=== PATIENT | male | born 1990 | race Caucasian/White ===

== ENCOUNTER 2017-06-03 14:03 | Emergency (ER) | payer OTHER ==
[2017-06-03 14:29] VITALS: RESP 18; TEMP 98.2
[2017-06-03] MEDS ORDERED: PENICILLIN V POTASSIUM 250 MG TAB PO STA (14:46)
[2017-06-03] MEDS ORDERED: KETOROLAC 30 MG/ML 1 ML VIAL IM STA (14:46)
[2017-06-03] MEDS ORDERED: BUPIVACAINE (PF) 0.5% 30 ML VIAL MISCELLANE STA (14:47)
--- NOTE | 2017-06-03 15:17 | ED ---
General Adult HPI - General Chief complaint: Dental/Oral Stated complaint: Dental Pain Time Seen by Provider: 06/03/17 14:34 Source: patient, RN notes reviewed Mode of arrival: ambulatory Limitations: no limitations - History of Present Illness Initial comments: 27-year-old male presents to the emergency department for a chief complaint of toothache. Patient has had tooth pain for about 3 days. Patient states he does not currently have a dentist. Patient denies any fevers or chills. Patient is able to open his mouth. Patient denies any pain or stiffness in the neck. Patient states it hurts to eat and is worse with any hot or cold. Patient states the affected tooth is also cracked. He states the pain is in his right upper jaw. Patient denies any other complaints. Patient denies any shortness of breath, chest pain, abdominal pain, nausea or vomiting. - Related Data Previous Rx's Medication Instructions Recorded Ibuprofen [Motrin] 600 mg PO Q8HR PRN #20 tab 06/03/17 Penicillin V Potassium [Pen Vee K] 500 mg PO Q6H 10 Days tablet 06/03/17 Allergies Allergy/AdvReac Type Severity Reaction Status Date / Time No Known Allergies Allergy Verified 06/03/17 14:29 Review of Systems ROS Statement: Those systems with pertinent positive or pertinent negative responses have been documented in the HPI. ROS Other: All systems not noted in ROS Statement are negative. Past Medical History Past Medical History: No Reported History History of Any Multi-Drug Resistant Organisms: None Reported Past Surgical History: No Surgical Hx Reported Past Psychological History: No Psychological Hx Reported Smoking Status: Current every day smoker Past Alcohol Use History: Occasional Past Drug Use History: None Reported General Exam Limitations: no limitations General appearance: alert, in no apparent distress Head exam: Present: atraumatic, normocephalic, normal inspection Eye exam: Present: normal appearance, PERRL, EOMI. Absent: scleral icterus, conjunctival injection, periorbital swelling ENT exam: Present: mucous membranes moist, TM's normal bilaterally. Absent: normal oropharynx (Tooth 1 is cracked. No abscesses noted. No redness in the mouth noted.) Neck exam: Present: normal inspection, full ROM. Absent: tenderness, meningismus, lymphadenopathy Respiratory exam: Present: normal lung sounds bilaterally. Absent: respiratory distress, wheezes, rales, rhonchi, stridor Cardiovascular Exam: Present: regular rate, normal rhythm, normal heart sounds. Absent: systolic murmur, diastolic murmur, rubs, gallop, clicks Course Vital Signs 06/03/17 06/03/17 14:28 15:30 Temperature 98.2 F Pulse Rate 73 61 Respiratory 18 18 Rate Blood Pressure 110/73 145/60 O2 Sat by Pulse 98 96 Oximetry Procedures - Procedures Initial comment: Posterior superior alveolar nerve block was used to numb tooth 1 per patient's request. Patient opened jaw residential and I stood at right side. Cheek was retracted laterally. 27-gauge needle was inserted at the intersection of the mucobuccal fold in the junction of molars 1 and 2. Needle was directed toward the posterior lateral maxillary tuberosity along the curvature of the maxilla and inserted about 2 cm. Syringe was aspirated. 2.5 mL of 0.5% bupivacaine was slowly injected. Needle was removed. Patient had much relief after this. No complications. Medical Decision Making - Medical Decision Making 27-year-old male presents to the emergency department for a chief complaint of tooth pain in the right upper jaw. Patient states this has been ongoing for 3 days. Patient has had tooth abscesses before. Patient does not currently have a dentist. Patient is afebrile and vitals are within normal limits. On exam, tooth 1 is cracked and causing pain. No redness noted in the mouth. No abscesses noted to drain. Patient requested to have a dental block performed. Dental block was performed on the affected tooth. This greatly reduced patient' s pain. 30 mg of Toradol was also given as well as penicillin in the emergency Department. Patient will continue a prescription of penicillin and Motrin. He will follow up with a dentist tomorrow. The number and address was given for the [facility]. He will return to the emergency department if he has any worsening symptoms or develops fevers. Disposition Clinical Impression: Tooth abscess Disposition: HOME SELF-CARE Condition: Good Instructions: Dental Abscess (ED) Additional Instructions: Please take Motrin and penicillin as directed. Please follow-up with a dentist tomorrow. Please return to the emergency department in one to 2 days if you have worsening symptoms or fevers. [facility] Address: [address] [place] [id number] Prescriptions: Ibuprofen [Motrin] 600 mg PO Q8HR PRN #20 tab PRN Reason: Pain Penicillin V Potassium [Pen Vee K] 500 mg PO Q6H 10 Days tablet Is patient prescribed a controlled substance at d/c from ED?: No Referrals: Júnior Ramirez MD [Primary Care Provider] - 1-2 days Time of Disposition: 15:18
[2017-06-03 15:31] VITALS: BP 145/60; PULSE 61
== END 2017-06-03 15:31 | disposition home or self-care (01) ==
LOC: EC 14:03 → SUPCPDRO 14:03 → EC 15:31
DX: K04.7 Periapical abscess without sinus (principal); F17.200 Nicotine dependence, unspecified, uncomplicated
CPT/HCPCS: 99282; 64400; 96372; J1885